=== PATIENT | male | born 1995 | race African-American/Black ===

== ENCOUNTER 2017-02-18 18:36 | Emergency (ER) | payer SELFPAY ==
[~2017-02-18] VITALS: Ht 177.8 cm; Wt 72.6 kg
[~2017-02-18 18:36] MED LIST: BACTRIM DS TABL1 TA1 PO; FLONASE16 GM; LORATADINE PO; MEDROL DOSEPAK4 MG PO; SINGULAIR PO; ZITHROMAX PO; [UNRECOGNIZED DRUG - OTHER]
[2017-02-18 20:27] LABS: URINE SOURCE CLEAN CATCH
[2017-02-18 20:29] LABS: URINE APPEARANCE CLEAR; URINE BILIRUBIN NEG (NEG); URINE BLOOD NEG (NEG); URINE COLOR YELLOW; URINE GLUCOSE NEG (NORM); URINE KETONE NEG (NEG); URINE NITRATE NEG (NEG); URINE PROTEIN NEG (NEG); URINE UROBILINOGEN 0.2 MG/DL (NORM)
[2017-02-18 20:33] LABS: MICRO INDICATED? NO; URINE LEUKOCYTE ESTERASE NEG (NEG)
[2017-02-21 10:00] LABS: CHLAMYDIA TRACH Detected (Not Detected); N GONOR Not Detected (Not Detected)
== END 2017-02-18 21:28 | disposition home or self-care (01) ==
LOC: SED 18:36
PROVIDERS: Nurse Practitioner
DX: R30.0 Dysuria (principal); Z20.2 Contact with and (suspected) exposure to infections with a predominantly sexual mode of transmission; J45.909 Unspecified asthma, uncomplicated
CPT/HCPCS: 81003; 87491; 87591; 96372; 99283; J0696